=== PATIENT | male | born 1960 | race American Indian/Alaskan Native ===

== ENCOUNTER 2021-03-13 09:16 | Inpatient (IN) | payer SELFPAY ==
[2021-03-13] MEDS ORDERED: ASPIRIN 325 MG TAB PO ONE (09:35)
--- NOTE | 2021-03-13 10:07 | XRay Report ---
CHEST 2 VIEWS INDICATION / CLINICAL INFORMATION: CP. COMPARISON: None available. FINDINGS: SUPPORT DEVICES: None. HEART / MEDIASTINUM: The heart size and pulmonary vasculature are normal. The aorta is normal in girma lyric. LUNGS / PLEURA: No significant pulmonary or pleural abnormality. No pneumothorax. ADDITIONAL FINDINGS: No significant additional findings. IMPRESSION: No acute findings. Signer Name: Jono Acevedo MD Signed: 03/13/2021 10:03 AM Workstation Name: [id number]
[2021-03-13] MEDS ORDERED: HEPARIN 10,000 UNITS/10 ML VIAL IV ONE (10:28)
[2021-03-13] MEDS ORDERED: HEPARIN 10,000 UNITS/10 ML VIAL IV PRN (10:28)
--- NOTE | 2021-03-13 10:33 | Emergency Department Report ---
HPI - General Chief Complaint: Chest Pain Time Seen by Provider: 03/13/21 10:04 - HPI HPI: 60-year-old male with history of hypertension presents complaining of severe mid substernal chest pain since waking up this morning. The patient states that he was diagnosed with COVID-19 on February 28 at the [facility]. He says since then he has been experiencing cough, congestion, and over the last week, intermittent episodes of chest pain lasting approximately an hour at a time. During these episodes of chest pain, including today, he has associated sh ortness of breath with nausea and vomiting. The pain is nonradiating. He describes it as a tightness. He denies any other associated symptoms or complaints including fever, headache, vision change, neck pain, back pain, palpitations, edema, abdominal pain, focal weakness, sensory changes, or any other complaints. ED Past Medical Hx - Past Medical History Hx Hypertension: Yes - Surgical History Past Surgical History?: No - Social History Smoking Status: Current Every Day Smoker Substance Use Type: None ED Review of Systems ROS: Stated complaint: CHEST PAIN Other details as noted in HPI Comment: All other systems reviewed and negative Constitutional: malaise. denies: chills, fever Eyes: denies: eye pain, vision change ENT: denies: throat pain, congestion Respiratory: cough, shortness of breath Cardiovascular: chest pain. denies: palpitations, edema, syncope Gastrointestinal: nausea, vomiting. denies: abdominal pain, diarrhea Genitourinary: denies: dysuria, frequency Musculoskeletal: denies: back pain, arthralgia Skin: denies: rash, lesions Neurological: denies: headache, weakness, numbness Physical Exam - Physical Exam Vital Signs: Vital Signs 03/13/21 09:20 Temperature 98.3 F Pulse Rate 80 Respiratory 20 Rate Blood Pressure 165/117 O2 Sat by Pulse 100 Oximetry Physical Exam: GENERAL: Well developed and well nourished. In mild distress secondary to pain. HEAD: Normocephalic. No obvious signs of trauma. ENT: Moist mucous membranes. EYES: Extraocular movements are intact. Pupils are equal round and reactive to light bilaterally NECK: Supple. Full ROM is intact. Trachea is midline. LUNGS: Tachypneic but without respiratory distress. Equal chest rise bilaterally. Clear to auscultation bilaterally. CARDIOVASCULAR: Regular rate and rhythm. No murmurs or rubs. VASCULAR: Cap refill < 2 seconds. Trace edema bilaterally ABDOMEN: Abdomen is soft and nondistended. There is no significant tenderness, guarding or rebound. SKIN: Skin is warm and dry NEURO: Patient is awake, alert, and oriented. machine setter II-XII grossly intact. No focal deficits. Normal motor and sensory exam throughout. Normal speech. MUSCULOSKELETAL: No obvious deformities. No significant tenderness. Normal ROM throughout. BACK/SPINE: No midline tenderness or step-offs of the C/T/L spine. No costov ertebral angle tenderness. ED Course Vital Signs 03/13/21 09:20 Temperature 98.3 F Pulse Rate 80 Respiratory 20 Rate Blood Pressure 165/117 O2 Sat by Pulse 100 Oximetry ED Medical Decision Making - Lab Data Result diagrams: 03/13/21 10:21 03/13/21 10:21 Lab Results 03/13/21 03/13/21 03/13/21 Range/Units 10:21 10:21 10:21 WBC 8.5 (4.5-11.0) K/mm3 RBC 4.89 (3.65-5.03) M/mm3 Hgb 14.0 (11.8-15.2) gm/dl Hct 43.1 (35.5-45.6) % MCV 88 (84-94) fl MCH 29 (28-32) pg MCHC 33 (32-34) % RDW 15.1 (13.2-15.2) % Plt Count 376 (140-440) K/mm3 Lymph % (Auto) 21.2 (13.4-35.0) % [place] % (Auto) 10.5 H (0.0-7.3) % Eos % (Auto) 0.1 (0.0-4.3) % Baso % (Auto) 0.5 (0.0-1.8) % Lymph # (Auto) 1.8 (1.2-5.4) K/mm3 [place] # (Auto) 0.9 H (0.0-0.8) K/mm3 Eos # (Auto) 0.0 (0.0-0.4) K/mm3 Baso # (Auto) 0.0 (0.0-0.1) K/mm3 Seg Neutrophils % 67.7 (40.0-70.0) % Seg Neutrophils # 5.8 (1.8-7.7) K/mm3 PT 12.0 L (12.2-14.9) Sec. INR 0.80 L (0.87-1.13) APTT 28.5 (24.2-36.6) Sec. D-Dimer (0-234) ng/mlDDU Sodium 139 (137-145) mmol/L Potassium 3.5 L (3.6-5.0) mmol/L Chloride 101.3 (98-107) mmol/L Carbon Dioxide 24 (22-30) mmol/L Anion Gap 17 mmol/L BUN 10 (9-20) mg/dL Creatinine 0.9 (0.8-1.3) mg/dL Estimated GFR > 60 ml/min BUN/Creatinine Ratio 11 % Glucose 96 (75-100) mg/dL Calcium 9.1 (8.4-10.2) mg/dL Ferritin (30.0-300.0) ng/mL Total Bilirubin < 0.20 (0.1-1.2) mg/dL Direct Bilirubin < 0.2 (0-0.2) mg/dL Indirect Bilirubin 0.0 mg/dL AST 26 (5-40) units/L ALT 15 (7-56) units/L Alkaline Phosphatase 67 (35-129) units/L Lactate Dehydrogenase (91-180) units/L Troponin T 0.056 H (0.00-0.029) ng/mL C-Reactive Protein (0.00-1.30) mg/dL NT-Pro-B Natriuret Pep 444.4 (0-900) pg/mL Total Protein 7.0 (6.3-8.2) g/dL Albumin 3.9 (3.9-5) g/dL Albumin/Globulin Ratio 1.3 % Triglycerides 86 (2-149) mg/dL Cholesterol 166 (50-199) mg/dL LDL Cholesterol Direct 105 (50-130) mg/dL HDL Cholesterol 46 (40-59) mg/dL Cholesterol/HDL Ratio 3.60 % Procalcitonin (<0.15) ng/mL 03/13/21 03/13/21 03/13/21 Range/Units 10:21 10:21 11:00 WBC (4.5-11.0) K/mm3 RBC (3.65-5.03) M/mm3 Hgb (11.8-15.2) gm/dl Hct (35.5-45.6) % MCV (84-94) fl MCH (28-32) pg MCHC (32-34) % RDW (13.2-15.2) % Plt Count (140-440) K/mm3 Lymph % (Auto) (13.4-35.0) % [place] % (Auto) (0.0-7.3) % Eos % (Auto) (0.0-4.3) % Baso % (Auto) (0.0-1.8) % Lymph # (Auto) (1.2-5.4) K/mm3 [place] # (Auto) (0.0-0.8) K/mm3 Eos # (Auto) (0.0-0.4) K/mm3 Baso # (Auto) (0.0-0.1) K/mm3 Seg Neutrophils % (40.0-70.0) % Seg Neutrophils # (1.8-7.7) K/mm3 PT (12.2-14.9) Sec. INR (0.87-1.13) APTT (24.2-36.6) Sec. D-Dimer 193.7 (0-234) ng/mlDDU Sodium (137-145) mmol/L Potassium (3.6-5.0) mmol/L Chloride (98-107) mmol/L Carbon Dioxide (22-30) mmol/L Anion Gap mmol/L BUN (9-20) mg/dL Creatinine (0.8-1.3) mg/dL Estimated GFR ml/min BUN/Creatinine Ratio % Glucose (75-100) mg/dL Calcium (8.4-10.2) mg/dL Ferritin (30.0-300.0) ng/mL Total Bilirubin (0.1-1.2) mg/dL Direct Bilirubin (0-0.2) mg/dL Indirect Bilirubin mg/dL AST (5-40) units/L ALT (7-56) units/L Alkaline Phosphatase (35-129) units/L Lactate Dehydrogenase 277 H (91-180) units/L Troponin T (0.00-0.029) ng/mL C-Reactive Protein 0.30 (0.00-1.30) mg/dL NT-Pro-B Natriuret Pep (0-900) pg/mL Total Protein (6.3-8.2) g/dL Albumin (3.9-5) g/dL Albumin/Globulin Ratio % Triglycerides (2-149) mg/dL Cholesterol (50-199) mg/dL LDL Cholesterol Direct (50-130) mg/dL HDL Cholesterol (40-59) mg/dL Cholesterol/HDL Ratio % Procalcitonin < 0.05 (<0.15) ng/mL 03/13/21 03/13/21 Range/Units 11:00 12:54 WBC (4.5-11.0) K/mm3 RBC (3.65-5.03) M/mm3 Hgb (11.8-15.2) gm/dl Hct (35.5-45.6) % MCV (84-94) fl MCH (28-32) pg MCHC (32-34) % RDW (13.2-15.2) % Plt Count (140-440) K/mm3 Lymph % (Auto) (13.4-35.0) % [place] % (Auto) (0.0-7.3) % Eos % (Auto) (0.0-4.3) % Baso % (Auto) (0.0-1.8) % Lymph # (Auto) (1.2-5.4) K/mm3 [place] # (Auto) (0.0-0.8) K/mm3 Eos # (Auto) (0.0-0.4) K/mm3 Baso # (Auto) (0.0-0.1) K/mm3 Seg Neutrophils % (40.0-70.0) % Seg Neutrophils # (1.8-7.7) K/mm3 PT (12.2-14.9) Sec. INR (0.87-1.13) APTT (24.2-36.6) Sec. D-Dimer (0-234) ng/mlDDU Sodium (137-145) mmol/L Potassium (3.6-5.0) mmol/L Chloride (98-107) mmol/L Carbon Dioxide (22-30) mmol/L Anion Gap mmol/L BUN (9-20) mg/dL Creatinine (0.8-1.3) mg/dL Estimated GFR ml/min BUN/Creatinine Ratio % Glucose (75-100) mg/dL Calcium (8.4-10.2) mg/dL Ferritin 67.4 (30.0-300.0) ng/mL Total Bilirubin (0.1-1.2) mg/dL Direct Bilirubin (0-0.2) mg/dL Indirect Bilirubin mg/dL AST (5-40) units/L ALT (7-56) units/L Alkaline Phosphatase (35-129) units/L Lactate Dehydrogenase (91-180) units/L Troponin T 0.192 H* D (0.00-0.029) ng/mL C-Reactive Protein (0.00-1.30) mg/dL NT-Pro-B Natriuret Pep (0-900) pg/mL Total Protein (6.3-8.2) g/dL Albumin (3.9-5) g/dL Albumin/Globulin Ratio % Triglycerides (2-149) mg/dL Cholesterol (50-199) mg/dL LDL Cholesterol Direct (50-130) mg/dL HDL Cholesterol (40-59) mg/dL Cholesterol/HDL Ratio % Procalcitonin (<0.15) ng/mL - EKG Data -: EKG Interpreted by Az - EKG Data 03/13/21 10:37 EKG #1 normal sinus rhythm. Normal axis. Normal intervals. No ectopy. There is approximately 2-[address] depression noted in leads V1-V4 without ST elevat ion or any obvious reciprocal changes. 03/13/21 10:48 EKG #2 (Posterior) normal sinus rhythm. Normal axis. Normal intervals. No ectopy. Previously seen ST depressions in the anterior leads have resolved. There are inverted T waves noted in the anterior leads. There is no significant ST segment abnormalities and no evidence of posterior STEMI - Radiology Data Radiology results: report reviewed - Medical Decision Making 60-year-old male presenting with intermittent chest pain for the past week after being diagnosed with Covid, now with constant chest pain for several hours with associated shortness of breath and nausea. Patient was given full-strength aspirin. He is afebrile and with normal vital signs other than elevated blood pressure. On physical examination he is in mild distress secondary to pain. Lungs are clear to auscultation. There are no other gross abnormalities on physical examination. Patient's EKG shows ST depressions in the anterior leads without other reciprocal changes and no ST elevation. Given concern for posterior RI, I have ordered a posterior EKG and consulted Dr. Bates of interventional cardiology. He doubts STEMI given lack of reciprocal changes but in clinical context with patient who has continued chest pain and diagnosis of COVID-19, he recommends initiation of heparin drip with admission for further management. Posterior EKG was performed and reveals no findings to suggest STEMI. Dr. Bates reviewed this EKG and agreed with this impression Labs reveal no significant leukocytosis or anemia. Kidney function is within normal limits. There is hypokalemia with potassium of 3.5. I have ordered repletion. Troponin is mildly elevated at 0.056. In the clinical context this likely represents NSTEMI. In addition to initiation of the heparin drip, I have ordered Nitropaste and 5 mg of IV Lopressor per recommendations of Dr. Bates. In light of patient with positive troponin and history of Covid diagnosis I will order CT angiogram of the chest to assess for evidence of pulmonary embolism versus other abnormal chest findings. CT angiogram of the chest shows no evidence of pulmonary embolism but there is finding of mild atypical pneumonia. Although this likely represents Covid pneumonia given the clinical history, I have ordered blood cultures and a dose of azithromycin. On repeat assessment at 12:50 PM, the patient is more comfortable appearing. He says his pain is improved but is still present. He remains with stable vital signs. I explained the results and diagnosis to the patient along with the plan of care and he expressed understanding and agreement I spoke with Dr. Rodas, the on-call hospitalist regarding the case and he accepts the patient for admission and will assume care. Critical Care Time: Yes Critical care time in (mins) excluding proc time.: 50 Critical care attestation.: If time is entered above; I have spent that time in minutes in the direct care of this critically ill patient, excluding procedure time. Critical care time was spent in the evaluation/assessment, work-up, and management of NSTEMI requiring initiation of IV heparin drip as well as pneumonia requiring antibiotics and discussion with specialist as well as frequent repeat reevaluation and reassessment. ED Disposition Clinical Impression: NSTEMI (non-ST elevated myocardial infarction), Suspected COVID-19 virus infection, Atypical pneumonia, Hypokalemia Disposition: ADMITTED INPATIENT Is pt being admited?: Yes HEART Score - HEART Score History: Highly suspicious EKG: Non-specific Age: 45-65 Risk factors: 1-2 risk factors
[2021-03-13] MEDS ORDERED: NITROGLYCERIN 0.4 MG TAB SUBL SL ONE (10:51)
[2021-03-13] MEDS ORDERED: ONDANSETRON 4 MG/2 ML INJ IV ONE (10:51)
[2021-03-13] MEDS ORDERED: HEPARIN/ 0.45% NACL DRIP 25,000 UNIT/500 ML BAG IV SCH (11:00)
[2021-03-13 11:04] LABS: Basophils % (Auto) 0.5 % (0.0-1.8); Eosinophils % (Auto) 0.1 % (0.0-4.3); Hematocrit 43.1 % (35.5-45.6); Lymphocytes # (Auto) 1.8 K/mm3 (1.2-5.4); Lymphocytes % (Auto) 21.2 % (13.4-35.0); Mean Corpuscular HGB Conc 33 % (32-34); Mean Corpuscular Volume 88 fl (84-94); Monocytes # (Auto) 0.9 K/mm3 (0.0-0.8); Monocytes % (Auto) 10.5 % (0.0-7.3); Platelet Count 376 K/mm3 (140-440); Red Blood Count 4.89 M/mm3 (3.65-5.03); Red Cell Distribution Width 15.1 % (13.2-15.2)
[2021-03-13 11:25] LABS: Alanine Aminotransferase 15 units/L (7-56); Albumin 3.9 g/dL (3.9-5); BUN/Creatinine Ratio 11; Blood Urea Nitrogen 10 mg/dL (9-20); Calcium 9.1 mg/dL (8.4-10.2); Hemolysis Index 2
[2021-03-13] MEDS ORDERED: POTASSIUM CHLORIDE ER 20 MEQ TAB PO ONE (11:29)
[2021-03-13 11:37] LABS: HDL Cholesterol 46 mg/dL (40-59); LDL Cholesterol,Direct 105 mg/dL (50-130)
[2021-03-13] MEDS ORDERED: NITROGLYCERIN 2% OINT 1 GM TP ONE (11:41)
[2021-03-13] MEDS ORDERED: METOPROLOL TARTRATE 5 MG/5 ML INJ IV ONE (11:42)
[2021-03-13 11:51] LABS: Bilirubin,Direct < 0.2 mg/dL (0-0.2)
[2021-03-13 12:05] LABS: INR 0.8 (0.87-1.13)
[2021-03-13 12:06] LABS: Partial Thromboplastin Time 28.5 Sec. (24.2-36.6)
[2021-03-13 12:14] LABS: C-Reactive Protein 0.3 mg/dL (0.00-1.30)
--- NOTE | 2021-03-13 12:34 | Consultation ---
<TIMOTHY MATA - Last Filed: 03/13/21 18:20> History of Present Illness Consult date: 03/13/21 Requesting physician: JOSE FUENTES Consult reason: chest pain History of present illness: Pt is a 60-year-old AA male with a hx of HTN, tobacco abuse (1 pack per week), and recently diagnosed COVID-19 infection (dx 02/28/2021), who presented with complaints of chest pain. Pt reports generalized fatigue, chills, SOB, and a cough that started prior to his COVID diagnosis. He is unvaccinated. Pt developed worsening SOB and chest pain a few days ago. Pt describes pain as a burning sensation in the center of his chest. He initially thought the pain to be indigestion because it became worse after eating. Sometimes associated with nausea. No diaphoresis or palpitations. He tried drinking some warm tea but notes no relief. Pain has been mostly constant for the past 3 days, with intermittent short periods of sporadic relief lasting only a few min. Pain is worsened by deep breaths. Pt states pain severity was 10/10 prior to arrival. Pain improved to 7/10 s/p NTG. Trop elevated - 0.056 -> 0.749. Initial 12-lead ECG revealed mild anterior ST depression without reciprocal changes. These ST segment changes resolved on repeat ECG, though anterior T wave inversions now present. Pt still has complaints of chest pain actively upon assessment but states he feels much better than he did when he arrived. Requesting food. He is not requiring supplemental O2. Of note, chest CTA revealed no evidence of PE. [facility], [facility]ch[facility]. He is previously unknown to our practice. No prior cardiac workup on file. Past History Past Medical History: hypertension. denies: acute MN, atrial fib, CAD, COPD, diabetes, DVT, heart failure, hyperlipidemia, liver disease, pulmonary embolism, renal failure, stroke Past Surgical History: denies: valve replacement, CABG, PTCA Social history: lives with family, smoking. denies: alcohol abuse Family history: hypertension Medications and Allergies Allergies Allergy/AdvReac Type Severity Reaction Status Date / Time No Known Allergies Allergy Verified 03/13/21 11:36 Active Meds: Active Medications Heparin Sodium (Porcine) (Heparin 10,000 Units/10 Ml Vial) 2,700 unit 40 unit/kg (2700 unit) IV Q6H PRN PRN Reason: Anti-Xa Assay < 0.1 units/ml Heparin Sodium/Sodium Chloride (Heparin/ 0.45% Nacl-25,000 Unit/500 Ml) 25,000 unit in 500 mls @ 20 mls/hr IV TITRATE ANGELINA; Protocol Review of Systems Constitutional: chills, fatigue, no fever, no sweats Ears, nose, mouth and throat: nasal congestion, no sore throat Cardiovascular: chest pain, shortness of breath, no palpitations, no edema, no syncope, no lightheadedness, no claudication Respiratory: cough, shortness of breath Gastrointestinal: nausea, no abdominal pain, no vomiting Genitourinary Male: no dysuria Musculoskeletal: no myalgias Integumentary: no rash, no wounds Neurological: no numbness, no tingling, no seizures, no syncope, no vertigo, no headaches Endocrine: no polydipsia, no polyuria Hematologic/Lymphatic: no easy bruising, no easy bleeding Allergic/Immunologic: no anaphylaxis Physical Examination Last Vital Signs Temp 98.3 F 03/13/21 09:20 Pulse 78 03/13/21 12:23 Resp 16 03/13/21 12:20 BP 158/105 03/13/21 12:23 Pulse Ox 99 03/13/21 12:20 General appearance: no acute distress HEENT: Positive: EOMI, Normocephaly, Mucus Membranes Moist Neck: Positive: neck supple, trachea midline. Negative: JVD/HJR Cardiac: Positive: Reg Rate and Rhythm, S1/S2 Lungs: Positive: Decreased Breath Sounds Neuro: Positive: Grossly Intact Abdomen: Positive: Soft. Negative: Tender Skin: Negative: Rash Musculoskeletal: No Fluid Collection, No Pain Extremities: Present: upper extr. pulses, lower extr. pulses. Absent: edema Results 03/13/21 10:21 03/13/21 10:21 Cardiac Enzymes 03/13/21 03/13/21 Range/Units 10:21 10:21 AST 26 (5-40) units/L Lactate Dehydrogenase 277 H (91-180) units/L Coagulation 03/13/21 Range/Units 10:21 PT 12.0 L (12.2-14.9) Sec. INR 0.80 L (0.87-1.13) APTT 28.5 (24.2-36.6) Sec. Lipids 03/13/21 Range/Units 10:21 Triglycerides 86 (2-149) mg/dL Cholesterol 166 (50-199) mg/dL HDL Cholesterol 46 (40-59) mg/dL Cholesterol/HDL Ratio 3.60 % CBC 03/13/21 Range/Units 10:21 WBC 8.5 (4.5-11.0) K/mm3 RBC 4.89 (3.65-5.03) M/mm3 Hgb 14.0 (11.8-15.2) gm/dl Hct 43.1 (35.5-45.6) % Plt Count 376 (140-440) K/mm3 Lymph # (Auto) 1.8 (1.2-5.4) K/mm3 [place] # (Auto) 0.9 H (0.0-0.8) K/mm3 Eos # (Auto) 0.0 (0.0-0.4) K/mm3 Baso # (Auto) 0.0 (0.0-0.1) K/mm3 Comprehensive Metabolic Panel 03/13/21 Range/Units 10:21 Sodium 139 (137-145) mmol/L Potassium 3.5 L (3.6-5.0) mmol/L Chloride 101.3 (98-107) mmol/L Carbon Dioxide 24 (22-30) mmol/L BUN 10 (9-20) mg/dL Creatinine 0.9 (0.8-1.3) mg/dL Glucose 96 (75-100) mg/dL Calcium 9.1 (8.4-10.2) mg/dL Direct Bilirubin < 0.2 (0-0.2) mg/dL Indirect Bilirubin 0.0 mg/dL AST 26 (5-40) units/L ALT 15 (7-56) units/L Alkaline Phosphatase 67 (35-129) units/L Total Protein 7.0 (6.3-8.2) g/dL Albumin 3.9 (3.9-5) g/dL - Imaging and Cardiology Echo: pending Cardiac cath: pending EKG: report reviewed, image reviewed EKG interpretations - Telemetry EKG Rhythm: Sinus Rhythm - EKG Sinus rhythms and dysrhythmias: sinus rhythm Additional Comments: 2mm depression in leads V1-V4, with no obvious reciprocal changes Assessment and Plan Chest Pain NSTEMI H/o COVID-19 Infection (dx 02/28/2021) LLL PNA Tobacco Abuse (1 pack per week) HTN Varicose Veins/?Venous Insufficiency Plan: Start heparin gtt. Add Aggrastat gtt x 12 hours. Initiate ASA, statin, and beta tonya. Plan for LHC in AM. NPO after midnight. Will hold heparin gtt in AM prior to planned procedure. Continue Nitropaste. Echo pending. Pt seen in conjunction with Dr. Bates, who agrees with the assessment and plan of care. - Patient Problems (1) ACS (acute coronary syndrome) Current Visit: Yes Status: Acute <EARNEST BATES R - Last Filed: 03/14/21 12:59> Medications and Allergies Active Meds: Active Medications Acetaminophen (Acetaminophen 325 Mg Tab) 650 mg PO Q4H PRN PRN Reason: Pain MILD(1-3)/Fever >100.5/LORENZANA Aspirin (Aspirin 81 Mg Tab Chew) 81 mg PO DAILY ANGELINA Atorvastatin Calcium (Atorvastatin 40 Mg Tab) 40 mg PO QHS [facility] Last Admin: 03/13/21 22:42 Dose: 40 mg Azithromycin (Azithromycin 250 Mg Tab) 500 mg PO QDAY [facility]; Protocol Dexamethasone (Dexamethasone 4 Mg/Ml Vial) 8 mg IV Q24HR [facility] Last Admin: 03/14/21 00:01 Dose: Not Given Famotidine (Famotidine 20 Mg/2 Ml Inj) 20 mg IV BID [facility] Last Admin: 03/14/21 00:01 Dose: Not Given Hydromorphone HCl (Hydromorphone 1 Mg/1 Ml Inj) 0.5 mg IV Q3H PRN PRN Reason: Pain , Severe (7-10) Sodium Chloride (Nacl 0.9% 1000 Ml) 1,000 mls @ 75 mls/hr IV DIRECT [facility] Stop: 03/14/21 18:00 Azithromycin (Zithromax/Ns) 500 mg in 250 mls @ 250 mls/hr IV Q24HR [facility] Stop: 03/14/21 23:59 Ceftriaxone Sodium (Rocephin/Ns 2 Gm/100 Ml) 2 gm in 100 mls @ 200 mls/hr IV 2300 [facility]; Protocol Metoclopramide HCl (Metoclopramide 10 Mg/2 Ml Inj) 10 mg IV Q6H PRN PRN Reason: Nausea And Vomiting Metoprolol Tartrate (Metoprolol Tartrate 25 Mg Tab) 25 mg PO BID [facility] Last Admin: 03/13/21 22:17 Dose: 25 mg Morphine Sulfate (Morphine 2 Mg/1 Ml Inj) 2 mg IV Q4H PRN PRN Reason: Pain, Moderate (4-6) Ondansetron HCl (Ondansetron 4 Mg/2 Ml Inj) 4 mg IV Q3H PRN PRN Reason: Nausea And Vomiting Oxycodone/Acetaminophen (Oxycodone /Acetaminophen 5-325mg Tab) 1 tab PO Q6H PRN PRN Reason: Pain, Moderate (4-6) Sodium Chloride (Sodium Chloride 0.9% 10 Ml Flush Syringe) 10 ml IV BID [facility] Sodium Chloride (Sodium Chloride 0.9% 10 Ml Flush Syringe) 10 ml IV PRN PRN PRN Reason: LINE FLUSH Physical Examination Vital Signs Temp Pulse Resp BP Pulse Ox 98.3 F 80 20 165/117 100 03/13/21 09:20 03/13/21 09:20 03/13/21 09:20 03/13/21 09:20 03/13/21 09:20 Results 03/14/21 04:15 03/14/21 04:15 Cardiac Enzymes 03/14/21 Range/Units 09:38 Lactate Dehydrogenase 1376 H (91-180) units/L Coagulation 03/14/21 Range/Units 04:15 PT 13.1 (12.2-14.9) Sec. INR 0.89 (0.87-1.13) CBC 03/14/21 Range/Units 04:15 WBC 11.3 H (4.5-11.0) K/mm3 RBC 4.72 (3.65-5.03) M/mm3 Hgb 13.4 (11.8-15.2) gm/dl Hct 42.1 (35.5-45.6) % Plt Count 362 (140-440) K/mm3 Lymph # (Auto) 2.1 (1.2-5.4) K/mm3 [place] # (Auto) 1.4 H (0.0-0.8) K/mm3 Eos # (Auto) 0.0 (0.0-0.4) K/mm3 Baso # (Auto) 0.0 (0.0-0.1) K/mm3 Comprehensive Metabolic Panel 03/14/21 Range/Units 04:15 Sodium 139 (137-145) mmol/L Potassium 3.9 (3.6-5.0) mmol/L Chloride 103.7 (98-107) mmol/L Carbon Dioxide 23 (22-30) mmol/L BUN 10 (9-20) mg/dL Creatinine 0.8 (0.8-1.3) mg/dL Glucose 95 (75-100) mg/dL Calcium 8.9 (8.4-10.2) mg/dL Assessment and Plan acs-nstemi acute systolic heart failure smoker htn chol rec: agree with lhc, iv heparin, iv aggrstat and lopressor and nitro.
--- NOTE | 2021-03-13 12:39 | Cat Scan Report ---
CTA CHEST WITH CONTRAST INDICATION / CLINICAL INFORMATION: Shortness of breath. TECHNIQUE: Axial CT images were obtained through the chest after injection of opaque 350, 100 cc IV c ontrast. 3 plane MIP and/or 3D reconstructions were produced. All CT scans at this location are perfo rmed using CT dose reduction for ALARA by means of automated exposure control. COMPARISON: None available. FINDINGS: PULMONARY ARTERIES: No pulmonary emboli. THORACIC AORTA: No significant abnormality. HEART: No significant abnormality. CORONARY ARTERY CALCIFICATION: None. MEDIASTINUM / COLIN: No significant abnormality. PLEURA: No pleural effusion. No pneumothorax. LUNGS: Mild patchy opacity along the lateral aspect of the left lower lobe. No dense infiltrate. ADDITIONAL FINDINGS: None. UPPER ABDOMEN: No acute findings. SKELETAL STRUCTURES: No significant osseous abnormality. IMPRESSION: 1. No CT evidence for pulmonary embolism. 2. Mild atypical pneumonia. Signer Name: Regis Fierro MD Signed: 03/13/2021 12:34 PM Workstation Name: [id number]
[2021-03-13] MEDS ORDERED: AZITHROMYCIN/NS 500 MG/250 ML 500 MG/250 ML BAG IV ONE (12:50)
[2021-03-13] MEDS ORDERED: SODIUM CHLORIDE 0.9% 500 ML 500 ML IV SCH (13:00)
[2021-03-13] MEDS ORDERED: METOPROLOL TARTRATE 25 MG TAB PO ONE (18:00)
[2021-03-13] MEDS ORDERED: TIROFIBAN/NS 12,500 MCG/250 ML BAG IV SCH (19:00)
[2021-03-13] MEDS ORDERED: ACETAMINOPHEN 325 MG TAB PO ONE (21:34)
[2021-03-13] MEDS ORDERED: METOPROLOL TARTRATE 25 MG TAB PO SCH (22:00)
--- NOTE | 2021-03-13 23:11 | History and Physical Report ---
History of Present Illness Date of examination: 03/13/21 Date of admission: 03/13/21 13:01 Chief complaint: Chest pain since a.m. History of present illness: 60-year-old male with history of hypertension presents complaining of severe mid substernal chest pain since waking up this morning. The patient states that he was diagnosed with COVID-19 on February 28 at the [facility]. He says since then he has been experiencing cough, congestion, and over the last week, intermittent episodes of chest pain lasting approximately an hour at a time. During these episodes of chest pain, including today, he has associated shortness of breath with nausea and vomiting. The pain is nonradiating. He describes it as a tightness. He denies any other associated symptoms or complaints including fever, headache, vision change, neck pain, back pain, palpitations, edema, abdominal pain, focal weakness, sensory changes, or any other complaints. - Past Medical History --Hypertension: Yes - Surgical History Past Surgical History?: No - Social History Smoking Status: Current Every Day Smoker Substance Use Type: None Family history --HTN Review of Systems ROS: Stated complaint: CHEST PAIN Other details as noted in HPI Comment: All other systems reviewed and negative Constitutional: malaise. denies: chills, fever Eyes: denies: eye pain, vision change ENT: denies: throat pain, congestion Respiratory: cough, shortness of breath Cardiovascular: chest pain. denies: palpitations, edema, syncope Gastrointestinal: nausea, vomiting. denies: abdominal pain, diarrhea Genitourinary: denies: dysuria, frequency Musculoskeletal: denies: back pain, arthralgia Skin: denies: rash, lesions Neurological: denies: headache, weakness, numbness Past History Past Medical History: hypertension. denies: acute MT, atrial fib, CAD, COPD, diabetes, DVT, heart failure, hyperlipidemia, liver disease, pulmonary embolism, renal failure, stroke Past Surgical History: denies: valve replacement, CABG, PTCA Social history: lives with family, smoking. denies: alcohol abuse Family history: hypertension Medications and Allergies Allergies Allergy/AdvReac Type Severity Reaction Status Date / Time No Known Allergies Allergy Verified 03/13/21 11:36 Active Meds: Active Medications Aspirin (Aspirin 81 Mg Tab Chew) 81 mg PO DAILY [facility] Atorvastatin Calcium (Atorvastatin 40 Mg Tab) 40 mg PO QHS [facility] Last Admin: 03/13/21 22:42 Dose: 40 mg Heparin Sodium (Porcine) (Heparin 10,000 Units/10 Ml Vial) 2,700 unit 40 unit/kg (2700 unit) IV Q6H PRN PRN Reason: Anti-Xa Assay < 0.1 units/ml Last Admin: 03/13/21 21:55 Dose: 2,700 unit Heparin Sodium/Sodium Chloride (Heparin/ 0.45% Nacl-25,000 Unit/500 Ml) 25,000 unit in 500 mls @ 20 mls/hr IV TITRATE ANGELINA; Protocol Stop: 03/14/21 04:00 Last Titration: 03/13/21 22:00 Dose: 1,205 units/hr, 24.1 mls/hr Tirofiban/Sodium Chloride (Aggrastat Drip (12.5 Mg/250 Ml)) 12,500 mcg in 250 mls @ 12 mls/hr IV DIRECT ANGELINA; Protocol Stop: 03/14/21 06:59 Metoprolol Tartrate (Metoprolol Tartrate 25 Mg Tab) 25 mg PO BID ANGELINA Last Admin: 03/13/21 22:17 Dose: 25 mg Exam - Constitutional Vitals: Temp Pulse Resp BP Pulse Ox 98.3 F 78 16 158/105 99 03/13/21 09:20 03/13/21 12:23 03/13/21 12:20 03/13/21 12:23 03/13/21 12:20 General appearance: Present: no acute distress, well-nourished - EENT Eyes: Present: PERRL ENT: hearing intact, clear oral mucosa - Neck Neck: Present: supple, normal ROM - Respiratory Respiratory effort: normal Respiratory: bilateral: CTA - Cardiovascular Heart rate: 78 Rhythm: regular Heart Sounds: Present: S1 & S2. Absent: rub, click - Extremities Extremities: pulses symmetrical, No edema Peripheral Pulses: within normal limits - Abdominal General gastrointestinal: Present: soft, non-tender, non-distended, normal bowel sounds Male genitourinary: Present: normal - Integumentary Integumentary: Present: clear, warm, dry - Musculoskeletal Musculoskeletal: gait normal, strength equal bilaterally - Psychiatric Psychiatric: appropriate mood/affect, intact judgment & insight, cooperative - Neurologic Neurologic: CNII-XII intact, moves all extremities, gait normal - Allied Health Allied health notes reviewed: nursing, social work, case management HEART Score - HEART Score EKG: Non-specific Age: 45-65 Risk factors: 1-2 risk factors Troponin: Troponin T 0.749 ng/mL (0.00-0.029) H* D 03/13/21 15:36 - Critical Actions Critical Actions: >7 pts:50-65% risk of adverse cardiac event. Early invasive measures Results - Labs CBC & Chem 7: 03/14/21 04:15 03/14/21 04:15 Labs: Laboratory Last Values WBC 8.5 K/mm3 (4.5-11.0) 03/13/21 10:21 RBC 4.89 M/mm3 (3.65-5.03) 03/13/21 10:21 Hgb 14.0 gm/dl (11.8-15.2) 03/13/21 10:21 Hct 43.1 % (35.5-45.6) 03/13/21 10:21 MCV 88 fl (84-94) 03/13/21 10:21 MCH 29 pg (28-32) 03/13/21 10:21 MCHC 33 % (32-34) 03/13/21 10:21 RDW 15.1 % (13.2-15.2) 03/13/21 10:21 Plt Count 376 K/mm3 (140-440) 03/13/21 10:21 Lymph % (Auto) 21.2 % (13.4-35.0) 03/13/21 10:21 [place] % (Auto) 10.5 % (0.0-7.3) H 03/13/21 10:21 Eos % (Auto) 0.1 % (0.0-4.3) 03/13/21 10:21 Baso % (Auto) 0.5 % (0.0-1.8) 03/13/21 10:21 Lymph # (Auto) 1.8 K/mm3 (1.2-5.4) 03/13/21 10:21 [place] # (Auto) 0.9 K/mm3 (0.0-0.8) H 03/13/21 10:21 Eos # (Auto) 0.0 K/mm3 (0.0-0.4) 03/13/21 10:21 Baso # (Auto) 0.0 K/mm3 (0.0-0.1) 03/13/21 10:21 Seg Neutrophils % 67.7 % (40.0-70.0) 03/13/21 10:21 Seg Neutrophils # 5.8 K/mm3 (1.8-7.7) 03/13/21 10:21 PT 12.0 Sec. (12.2-14.9) L 03/13/21 10:21 INR 0.80 (0.87-1.13) L 03/13/21 10:21 APTT 28.5 Sec. (24.2-36.6) 03/13/21 10:21 D-Dimer 193.7 ng/mlDDU (0-234) 03/13/21 10:21 Heparin Anti-Xa Level < 0.10 U.I./ml (0.3-0.7) L 03/13/21 19:38 Sodium 139 mmol/L (137-145) 03/13/21 10:21 Potassium 3.5 mmol/L (3.6-5.0) L 03/13/21 10:21 Chloride 101.3 mmol/L (98-107) 03/13/21 10:21 Carbon Dioxide 24 mmol/L (22-30) 03/13/21 10:21 Anion Gap 17 mmol/L 03/13/21 10:21 BUN 10 mg/dL (9-20) 03/13/21 10:21 Creatinine 0.9 mg/dL (0.8-1.3) 03/13/21 10:21 Estimated GFR > 60 ml/min 03/13/21 10:21 BUN/Creatinine Ratio 11 % 03/13/21 10:21 Glucose 96 mg/dL (75-100) 03/13/21 10:21 Calcium 9.1 mg/dL (8.4-10.2) 03/13/21 10:21 Ferritin 67.4 ng/mL (30.0-300.0) 03/13/21 11:00 Total Bilirubin < 0.20 mg/dL (0.1-1.2) 03/13/21 10:21 Direct Bilirubin < 0.2 mg/dL (0-0.2) 03/13/21 10:21 Indirect Bilirubin 0.0 mg/dL 03/13/21 10:21 AST 26 units/L (5-40) 03/13/21 10:21 ALT 15 units/L (7-56) 03/13/21 10:21 Alkaline Phosphatase 67 units/L (35-129) 03/13/21 10:21 Lactate Dehydrogenase 277 units/L (91-180) H 03/13/21 10:21 Troponin T 0.749 ng/mL (0.00-0.029) H* D 03/13/21 15:36 C-Reactive Protein 0.30 mg/dL (0.00-1.30) 03/13/21 10:21 NT-Pro-B Natriuret Pep 444.4 pg/mL (0-900) 03/13/21 10:21 Total Protein 7.0 g/dL (6.3-8.2) 03/13/21 10:21 Albumin 3.9 g/dL (3.9-5) 03/13/21 10:21 Albumin/Globulin Ratio 1.3 % 03/13/21 10:21 Triglycerides 86 mg/dL (2-149) 03/13/21 10:21 Cholesterol 166 mg/dL (50-199) 03/13/21 10:21 LDL Cholesterol Direct 105 mg/dL (50-130) 03/13/21 10:21 HDL Cholesterol 46 mg/dL (40-59) 03/13/21 10:21 Cholesterol/HDL Ratio 3.60 % 03/13/21 10:21 Procalcitonin < 0.05 ng/mL (<0.15) 03/13/21 11:00 Microbiology: Microbiology 03/13/21 12:59 Peripheral/Venous Blood Culture - Preliminary Culture in Progress 03/13/21 12:59 Peripheral/Venous Blood Culture - Preliminary Culture in Progress - Imaging and Cardiology EKG: report reviewed (Sinus rhythm no acute ST-T wave changes) Chest x-ray: report reviewed CT scan - chest: report reviewed Venous US: pending Imaging and Cardiology: Chest x-ray No acute findings Chest CTA No CT evidence for pulmonary embolism Mild atypical pneumonia Mild patchy opacity along the lateral aspect of the left lower lobe. Dense infiltrate. 03/13/21 10:37 EKG #1 normal sinus rhythm. Normal axis. Normal intervals. No ectopy. There is approximately 2-[address] depression noted in leads V1-V4 without ST elevation or any obvious reciprocal changes. 03/13/21 10:48 EKG #2 (Posterior) normal sinus rhythm. Normal axis. Normal intervals. No ectopy. Previously seen ST depressions in the anterior leads have resolved. There are inverted T waves noted in the anterior leads. There is no significant ST segment abnormalities and no evidence of posterior STEMI Assessment and Plan Advance Directives: Yes (Full code) VTE prophylaxis?: Chemical Plan of care discussed with patient/family: Yes - Patient Problems (1) NSTEMI (non-ST elevated myocardial infarction) Current Visit: Yes Status: Acute Plan to address problem: Patient has acute EKG changes and elevated troponin consistent with NSTEMI Patient started on IV heparin drip Possible cardiac cath in a.m. Cardiology consulted Troponins on the uptrend (2) Person under investigation for COVID-19 Current Visit: Yes Status: Acute Plan to address problem: Coronavirus PCR in a.m. Patient was diagnosed with COVID on February 28 IV Decadron for now ID consult if necessary (3) Pneumonia Current Visit: Yes Status: Acute Qualifiers: Laterality: left Lung location: lower lobe of lung Plan to address problem: Patchy infiltrate on the left lower lobe IV antibiotics initiated Check procalcitonin and discontinue IV antibiotics if necessary (4) SIRS (systemic inflammatory response syndrome) Current Visit: Yes Status: Acute Plan to address problem: LDH is elevated, CRP is normal, D-dimer is normal (5) Hypertension Current Visit: Yes Status: Chronic Qualifiers: Hypertension type: primary hypertension Qualified Code(s): I10 - Essential (primary) hypertension Plan to address problem: Continue antihypertensives (6) Hypokalemia Current Visit: Yes Status: Acute Plan to address problem: Supplemented (7) Advance care planning Current Visit: Yes Status: Acute Plan to address problem: Disease education conducted, care plan discussed, diagnosis discussed, prognosis discussed. Patient is full code. Patient acknowledges understanding and agreement with care plan. +30 minutes. (8) DVT prophylaxis Current Visit: Yes Status: Acute Plan to address problem: On IV heparin and GI prophylaxis
[2021-03-13] MEDS ORDERED: ACETAMINOPHEN 325 MG TAB PO PRN (23:15)
[2021-03-13] MEDS ORDERED: SODIUM CHLORIDE 0.9% 1000 ML 1,000 ML IV SCH (23:15)
[2021-03-13] MEDS ORDERED: ONDANSETRON 4 MG/2 ML INJ IV PRN (23:15)
[2021-03-13] MEDS ORDERED: oxyCODONE /ACETAMINOPHEN 5-325MG TAB PO PRN (23:23)
[2021-03-13] MEDS ORDERED: MORPHINE 2 MG/1 ML INJ IV PRN (23:23)
[2021-03-13] MEDS ORDERED: HYDROmorphone 1 MG/1 ML INJ IV PRN (23:23)
[2021-03-13] MEDS ORDERED: METOCLOPRAMIDE 10 MG/2 ML INJ IV PRN (23:23)
[2021-03-13] MEDS ORDERED: FAMOTIDINE 20 MG/2 ML INJ IV SCH (23:45)
[2021-03-13] MEDS ORDERED: dexAMETHasone 4 MG/ML VIAL IV SCH (23:45)
[2021-03-13] MEDS ORDERED: cefTRIAXone/NS 2 GM/100 ML 2 GM/100 ML BAG IV SCH (23:55)
[2021-03-14 05:25] LABS: Basophils % (Auto) 0.4 % (0.0-1.8); Eosinophils % (Auto) 0.1 % (0.0-4.3); Hematocrit 42.1 % (35.5-45.6); Hemoglobin 13.4 gm/dl (11.8-15.2); Lymphocytes # (Auto) 2.1 K/mm3 (1.2-5.4); Lymphocytes % (Auto) 18.5 % (13.4-35.0); Mean Corpuscular HGB Conc 32 % (32-34); Mean Corpuscular Volume 89 fl (84-94); Monocytes # (Auto) 1.4 K/mm3 (0.0-0.8); Monocytes % (Auto) 12.6 % (0.0-7.3); Platelet Count 362 K/mm3 (140-440); Red Blood Count 4.72 M/mm3 (3.65-5.03); Red Cell Distribution Width 15.3 % (13.2-15.2)
[2021-03-14 05:34] LABS: BUN/Creatinine Ratio 13; Blood Urea Nitrogen 10 mg/dL (9-20); Calcium 8.9 mg/dL (8.4-10.2); Hemolysis Index 7
[2021-03-14 06:24] LABS: INR 0.89 (0.87-1.13)
--- NOTE | 2021-03-14 09:25 | Progress Note ---
Assessment and Plan Assessment and plan: NSTEMI/ACS COVID-19 pneumonia Hypertension 03/14/2021. Patient with significantly elevated troponin that has trended upward. Troponin0.056--->1.749--->14.26. I discussed the significantly elevated troponin with cardiology who plans to take the patient to the [facility]. Patient currently with heparin and Aggrastat drips. Continue aspirin, statin and beta-tonya. Echocardiogram pending. Await COVID PCR testing to confirm outpatient positive test. Check inflammatory markers. Continue dexamethasone. Continue IV antibiotics until procalcitonin resulted. Consider ID consultation based on COVID PCR test History Interval history: No new issues overnight. Hospitalist Physical - Constitutional Vitals: Temp Pulse Resp BP Pulse Ox 98.3 F 74 22 124/87 99 03/13/21 09:20 03/14/21 07:01 03/14/21 07:01 03/14/21 07:01 03/14/21 07:01 General appearance: Present: no acute distress, well-nourished - EENT Eyes: Present: PERRL, EOM intact ENT: hearing intact, clear oral mucosa, dentition normal - Neck Neck: Present: supple, normal ROM - Respiratory Respiratory effort: normal Respiratory: bilateral: CTA - Cardiovascular Rhythm: regular Heart Sounds: Present: S1 & S2. Absent: gallop, rub - Extremities Extremities: no ischemia, No edema, Full ROM - Abdominal General gastrointestinal: soft, non-tender, non-distended, normal bowel sounds - Integumentary Integumentary: Present: clear, warm, dry - Neurologic Neurologic: CNII-XII intact, moves all extremities HEART Score - HEART Score EKG: Non-specific Age: 45-65 Risk factors: 1-2 risk factors Troponin: Troponin T 14.260 ng/mL (0.00-0.029) H* D 03/14/21 04:15 - Critical Actions Critical Actions: >7 pts:50-65% risk of adverse cardiac event. Early invasive measures Results - Labs CBC & Chem 7: 03/14/21 04:15 03/14/21 04:15 Labs: Laboratory Last Values WBC 11.3 K/mm3 (4.5-11.0) H 03/14/21 04:15 RBC 4.72 M/mm3 (3.65-5.03) 03/14/21 04:15 Hgb 13.4 gm/dl (11.8-15.2) 03/14/21 04:15 Hct 42.1 % (35.5-45.6) 03/14/21 04:15 MCV 89 fl (84-94) 03/14/21 04:15 MCH 29 pg (28-32) 03/14/21 04:15 MCHC 32 % (32-34) 03/14/21 04:15 RDW 15.3 % (13.2-15.2) H 03/14/21 04:15 Plt Count 362 K/mm3 (140-440) 03/14/21 04:15 Lymph % (Auto) 18.5 % (13.4-35.0) 03/14/21 04:15 [place] % (Auto) 12.6 % (0.0-7.3) H 03/14/21 04:15 Eos % (Auto) 0.1 % (0.0-4.3) 03/14/21 04:15 Baso % (Auto) 0.4 % (0.0-1.8) 03/14/21 04:15 Lymph # (Auto) 2.1 K/mm3 (1.2-5.4) 03/14/21 04:15 [place] # (Auto) 1.4 K/mm3 (0.0-0.8) H 03/14/21 04:15 Eos # (Auto) 0.0 K/mm3 (0.0-0.4) 03/14/21 04:15 Baso # (Auto) 0.0 K/mm3 (0.0-0.1) 03/14/21 04:15 Seg Neutrophils % 68.4 % (40.0-70.0) 03/14/21 04:15 Seg Neutrophils # 7.7 K/mm3 (1.8-7.7) 03/14/21 04:15 PT 13.1 Sec. (12.2-14.9) 03/14/21 04:15 INR 0.89 (0.87-1.13) 03/14/21 04:15 APTT 28.5 Sec. (24.2-36.6) 03/13/21 10:21 D-Dimer 193.7 ng/mlDDU (0-234) 03/13/21 10:21 Heparin Anti-Xa Level < 0.10 U.I./ml (0.3-0.7) L 03/14/21 04:15 Sodium 139 mmol/L (137-145) 03/14/21 04:15 Potassium 3.9 mmol/L (3.6-5.0) 03/14/21 04:15 Chloride 103.7 mmol/L (98-107) 03/14/21 04:15 Carbon Dioxide 23 mmol/L (22-30) 03/14/21 04:15 Anion Gap 16 mmol/L 03/14/21 04:15 BUN 10 mg/dL (9-20) 03/14/21 04:15 Creatinine 0.8 mg/dL (0.8-1.3) 03/14/21 04:15 Estimated GFR > 60 ml/min 03/14/21 04:15 BUN/Creatinine Ratio 13 % 03/14/21 04:15 Glucose 95 mg/dL (75-100) 03/14/21 04:15 Calcium 8.9 mg/dL (8.4-10.2) 03/14/21 04:15 Ferritin 67.4 ng/mL (30.0-300.0) 03/13/21 11:00 Total Bilirubin < 0.20 mg/dL (0.1-1.2) 03/13/21 10:21 Direct Bilirubin < 0.2 mg/dL (0-0.2) 03/13/21 10:21 Indirect Bilirubin 0.0 mg/dL 03/13/21 10:21 AST 26 units/L (5-40) 03/13/21 10:21 ALT 15 units/L (7-56) 03/13/21 10:21 Alkaline Phosphatase 67 units/L (35-129) 03/13/21 10:21 Lactate Dehydrogenase 277 units/L (91-180) H 03/13/21 10:21 Troponin T 14.260 ng/mL (0.00-0.029) H* D 03/14/21 04:15 C-Reactive Protein 0.30 mg/dL (0.00-1.30) 03/13/21 10:21 NT-Pro-B Natriuret Pep 444.4 pg/mL (0-900) 03/13/21 10:21 Total Protein 7.0 g/dL (6.3-8.2) 03/13/21 10:21 Albumin 3.9 g/dL (3.9-5) 03/13/21 10:21 Albumin/Globulin Ratio 1.3 % 03/13/21 10:21 Triglycerides 86 mg/dL (2-149) 03/13/21 10:21 Cholesterol 166 mg/dL (50-199) 03/13/21 10:21 LDL Cholesterol Direct 105 mg/dL (50-130) 03/13/21 10:21 HDL Cholesterol 46 mg/dL (40-59) 03/13/21 10:21 Cholesterol/HDL Ratio 3.60 % 03/13/21 10:21 Procalcitonin < 0.05 ng/mL (<0.15) 03/13/21 11:00 Microbiology: Microbiology 03/13/21 12:59 Peripheral/Venous Blood Culture - Preliminary Culture in Progress 03/13/21 12:59 Peripheral/Venous Blood Culture - Preliminary Culture in Progress Active Medications - Current Medications Current Medications: Generic Name Dose Route Start Last Admin Trade Name Freq PRN Reason Stop Dose Admin Acetaminophen 650 mg 03/13/21 23:15 Acetaminophen 325 Mg Tab PO Q4H PRN Pain MILD(1-3)/Fever >100.5/LORENZANA Aspirin 81 mg 03/14/21 10:00 Aspirin 81 Mg Tab Chew PO DAILY [facility] Atorvastatin Calcium 40 mg 03/13/21 22:00 03/13/21 22:42 Atorvastatin 40 Mg Tab PO 40 mg QHS [facility] Administration Dexamethasone 8 mg 03/13/21 23:45 03/14/21 00:01 Dexamethasone 4 Mg/Ml Vial IV Not Given Q24HR [facility] Famotidine 20 mg 03/13/21 23:45 03/14/21 00:01 Famotidine 20 Mg/2 Ml Inj IV Not Given BID [facility] Heparin Sodium (Porcine) 2,700 unit 03/13/21 10:28 03/13/21 21:55 Heparin 10,000 Units/10 Ml Vial 40 unit/kg (2700 unit) 2,700 unit IV Administration Q6H PRN Anti-Xa Assay < 0.1 units/ml Hydromorphone HCl 0.5 mg 03/13/21 23:23 Hydromorphone 1 Mg/1 Ml Inj IV Q3H PRN Pain , Severe (7-10) Sodium Chloride 1,000 mls @ 75 mls/hr 03/13/21 23:15 Nacl 0.9% 1000 Ml IV 03/14/21 18:00 DIRECT [facility] Azithromycin 500 mg in 250 mls @ 250 mls/hr 03/14/21 10:00 Zithromax/Ns IV Q24HR [facility] Ceftriaxone Sodium 2 gm in 100 mls @ 200 mls/hr 03/13/21 23:55 03/13/21 23:58 Rocephin/Ns 2 Gm/100 Ml IV Not Given Q24HR [facility] Protocol Metoclopramide HCl 10 mg 03/13/21 23:23 Metoclopramide 10 Mg/2 Ml Inj IV Q6H PRN Nausea And Vomiting Metoprolol Tartrate 25 mg 03/13/21 22:00 03/13/21 22:17 Metoprolol Tartrate 25 Mg Tab PO 25 mg BID [facility] Administration Morphine Sulfate 2 mg 03/13/21 23:23 Morphine 2 Mg/1 Ml Inj IV Q4H PRN Pain, Moderate (4-6) Ondansetron HCl 4 mg 03/13/21 23:15 Ondansetron 4 Mg/2 Ml Inj IV Q3H PRN Nausea And Vomiting Oxycodone/Acetaminophen 1 tab 03/13/21 23:23 Oxycodone /Acetaminophen 5-325mg Tab PO Q6H PRN Pain, Moderate (4-6) Sodium Chloride 10 ml 03/14/21 10:00 Sodium Chloride 0.9% 10 Ml Flush Syringe IV BID [facility] Sodium Chloride 10 ml 03/13/21 23:15 Sodium Chloride 0.9% 10 Ml Flush Syringe IV PRN PRN LINE FLUSH
[2021-03-14] MEDS ORDERED: ASPIRIN 81 MG TAB CHEW PO SCH (10:00)
[2021-03-14] MEDS ORDERED: AZITHROMYCIN/NS 500 MG/250 ML 500 MG/250 ML BAG IV SCH (10:00)
[2021-03-14] MEDS ORDERED: HEPARIN 10,000 UNITS/10 ML VIAL ONE (10:58)
[2021-03-14] MEDS ORDERED: HEPARIN/NS 5000 UNIT/500ML 1,000 ML IR ONE (10:58)
[2021-03-14] MEDS ORDERED: VERAPAMIL 5 MG/2 ML INJ ONE (10:58)
[2021-03-14] MEDS ORDERED: LIDOCAINE (2%) 20 MG/1 ML VIAL 20 ML MDV INFILTRATI ONE (10:58)
[2021-03-14] MEDS ORDERED: SODIUM CHLORIDE 0.9% 500 ML 500 ML ONE ×2 (11:02→13:29)
[2021-03-14 11:16] LABS: C-Reactive Protein 0.7 mg/dL (0.00-1.30)
[2021-03-14] MEDS: fentaNYL 100 MCG/2 ML INJ ONE ×2 (11:26→11:32)
[2021-03-14] MEDS: MIDAZOLAM 2 MG/2 ML INJ ONE ×2 (11:26→11:32)
[2021-03-14] MEDS ORDERED: HEPARIN/ 0.45% NACL DRIP 25,000 UNIT/500 ML BAG ONE (11:39)
[2021-03-14] MEDS ORDERED: NITROGLYCERIN DRIP 50 MG/250 ML BOTTLE ONE (11:54)
--- NOTE | 2021-03-14 12:33 | Progress Note ---
Assessment and Plan Pt is a 60-year-old AA male with a hx of HTN, tobacco abuse (1 pack per week), and recently diagnosed COVID-19 infection (dx 02/28/2021), who presented with complaints of chest pain. Chest Pain NSTEMI H/o COVID-19 Infection (dx 02/28/2021) LLL PNA Tobacco Abuse (1 pack per week) HTN Varicose Veins/?Venous Insufficiency Plan: Continue heparin gtt. Continue ASA, statin, and beta tonya. 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 Patient accepted by Dr. Munguia at [facility] Pt seen in conjunction with Dr. Mark, who agrees with the assessment and plan of care. - Patient Problems (1) ACS (acute coronary syndrome) Current Visit: Yes Status: Acute (2) Chest pain Current Visit: Yes Status: Acute (3) Hypokalemia Current Visit: Yes Status: Acute (4) NSTEMI (non-ST elevated myocardial infarction) Current Visit: Yes Status: Acute (5) Person under investigation for COVID-19 Current Visit: Yes Status: Acute (6) Pneumonia Current Visit: Yes Status: Acute Qualifiers: Laterality: left Lung location: lower lobe of lung (7) SIRS (systemic inflammatory response syndrome) Current Visit: Yes Status: Acute (8) Hypertension Current Visit: Yes Status: Chronic Qualifiers: Hypertension type: primary hypertension Qualified Code(s): I10 - Essential (primary) hypertension Subjective Date of service: 03/14/21 Principal diagnosis: NSTEMI Interval history: Patient with cardiac cath this a.m. Objective Vital Signs Pulse Resp BP Pulse Ox 03/14/21 07:01 74 22 124/87 99 03/14/21 06:31 73 117/74 99 03/14/21 06:01 67 23 127/86 100 03/14/21 05:31 68 21 128/87 98 03/14/21 05:01 70 22 118/75 100 03/14/21 04:31 75 13 129/92 99 03/14/21 04:01 72 23 124/86 98 03/14/21 03:31 72 16 115/77 98 03/14/21 03:01 67 20 131/89 99 03/14/21 02:31 79 16 132/94 99 03/14/21 02:01 77 15 137/97 100 03/14/21 01:45 66 11 L 133/92 98 03/14/21 01:31 81 19 133/92 98 03/14/21 01:15 68 20 116/80 99 03/14/21 01:01 73 18 116/80 97 03/14/21 00:45 72 22 115/74 95 03/14/21 00:31 74 22 115/74 99 03/14/21 00:15 67 18 122/87 97 03/14/21 00:01 80 16 122/87 98 03/13/21 23:45 68 17 130/92 99 03/13/21 23:39 71 22 130/92 99 03/13/21 23:31 72 18 130/92 99 03/13/21 23:15 70 21 130/99 99 03/13/21 23:01 79 19 130/99 99 03/13/21 22:45 14 03/13/21 20:00 100 - Physical Examination General: No Apparent Distress HEENT: Positive: EOMI, Normocephaly, Mucus Membranes Moist Neck: Positive: neck supple, trachea midline. Negative: JVD/HJR Cardiac: Positive: Reg Rate and Rhythm Lungs: Positive: Normal Breath Sounds Neuro: Positive: Grossly Intact Abdomen: Positive: Soft. Negative: Tender Skin: Negative: Rash Musculoskeletal: No Fluid Collection, No Pain Extremities: Present: upper extr. pulses, lower extr. pulses. Absent: edema - Labs and Meds Cardiac Enzymes 03/14/21 Range/Units 09:38 Lactate Dehydrogenase 1376 H (91-180) units/L Coagulation 03/14/21 Range/Units 04:15 PT 13.1 (12.2-14.9) Sec. INR 0.89 (0.87-1.13) CBC 03/14/21 Range/Units 04:15 WBC 11.3 H (4.5-11.0) K/mm3 RBC 4.72 (3.65-5.03) M/mm3 Hgb 13.4 (11.8-15.2) gm/dl Hct 42.1 (35.5-45.6) % Plt Count 362 (140-440) K/mm3 Lymph # (Auto) 2.1 (1.2-5.4) K/mm3 [place] # (Auto) 1.4 H (0.0-0.8) K/mm3 Eos # (Auto) 0.0 (0.0-0.4) K/mm3 Baso # (Auto) 0.0 (0.0-0.1) K/mm3 Comprehensive Metabolic Panel 03/14/21 Range/Units 04:15 Sodium 139 (137-145) mmol/L Potassium 3.9 (3.6-5.0) mmol/L Chloride 103.7 (98-107) mmol/L Carbon Dioxide 23 (22-30) mmol/L BUN 10 (9-20) mg/dL Creatinine 0.8 (0.8-1.3) mg/dL Glucose 95 (75-100) mg/dL Calcium 8.9 (8.4-10.2) mg/dL - Imaging and Cardiology EKG: report reviewed (Sinus rhythm no acute ST-T wave changes) Echo: pending Cardiac cath: pending - Telemetry EKG Rhythm: Sinus Rhythm - EKG Sinus rhythms and dysrhythmias: sinus rhythm
[2021-03-14 13:28] VITALS: BP 132/69
--- NOTE | 2021-03-14 13:47 | Discharge Summary ---
Providers - Providers Date of Admission: 03/13/21 13:01 Date of discharge: 03/14/21 Attending physician: JLUIS MATA 03/13/21 11:44 Consult to Physician [CONS] Urgent Comment: Consulting Provider: DINORA MORRIS Physician Instructions: Reason For Exam: NSTEMI Primary care physician: [facility] Hospitalization Reason for admission: ACS, NSTEMI Hospital course: Pt is a 60-year-old AA male with a hx of HTN, tobacco abuse (1 pack per week), and recently diagnosed COVID-19 infection (dx 02/28/2021), who presented with complaints of chest pain. Pt reports generalized fatigue, chills, SOB, and a cough that started prior to his COVID diagnosis. He is unvaccinated. Pt developed worsening SOB and chest pain a few days ago. Pt describes pain as a burning sensation in the center of his chest. No diaphoresis or palpitations. Pt stated pain severity was 10/10 prior to arrival. Pain improved to 7/10 s/p NTG. Trop elevated - 0.056 -> 0.749. Initial 12-lead ECG revealed mild anterior ST depression without reciprocal changes. These ST segment changes resolved on repeat ECG, though anterior T wave inversions now present. Of note, chest CTA revealed no evidence of PE. Historically, pt is followed by the [facility] for varicose veins/?chronic venous insufficiency. Pt was admitted with dx of ACS, Covid PNA and NSTEMI. Patient was found to have significantly elevated troponin that has trended upward. Troponin0.056--->0.749--->14.26. I discussed the significantly elevated troponin with cardiology who took the patient to the [facility]. Patient treated with heparin and Aggrastat drips per cards recommendations. Also, Continued on aspirin, statin and beta-tonya. Echocardiogram pending. Await COVID PCR testing to confirm outpatient positive test. F/U inflammatory markers. Continue dexamethasone. Continue IV antibiotics until procalcitonin resulted. Consider ID consultation based on COVID PCR test. After Cath pt initiated on Nitro drip as well. Patient found to have triple- vessel disease during [facility] and is to be transferred to [place] for further intervention. Patient accepted by Dr. Munguia at [place] Dedicated d/c time 32 min Disposition: HOME / SELF CARE / HOMELESS Final Discharge Diagnosis (Prints w/discharge instructions): ACS, NSTEMI, CAD--triple vessel disease Core Measure Documentation - Palliative Care Palliative Care/ Comfort Measures: Not Applicable - Core Measures Any of the following diagnoses?: none Exam - Constitutional Vitals: Temp Pulse Resp BP Pulse Ox 98.8 F 65 18 132/69 93 03/14/21 12:25 03/14/21 13:15 03/14/21 13:15 03/14/21 13:15 03/14/21 13:15 General appearance: Present: no acute distress, well-nourished - EENT Eyes: Present: PERRL ENT: hearing intact, clear oral mucosa - Neck Neck: Present: supple, normal ROM - Respiratory Respiratory effort: normal Respiratory: bilateral: CTA - Cardiovascular Heart Sounds: Present: S1 & S2. Absent: rub, click - Extremities Extremities: pulses symmetrical, No edema Peripheral Pulses: within normal limits - Abdominal General gastrointestinal: Present: soft, non-tender, non-distended, normal bowel sounds Male genitourinary: Present: normal - Integumentary Integumentary: Present: clear, warm, dry - Musculoskeletal Musculoskeletal: gait normal, strength equal bilaterally - Psychiatric Psychiatric: appropriate mood/affect, intact judgment & insight - Neurologic Neurologic: CNII-XII intact, moves all extremities Plan Activity: advance as tolerated Weight Bearing Status: Non-Weight Bearing Diet: low fat, low cholesterol, low salt Follow up with: [facility] [Primary Care Provider] - 3-5 Days
--- NOTE | 2021-03-14 19:17 | Cardiac Catherization Report ---
DATE OF SERVICE: 03/14/2021 INDICATIONS: The patient is a 60-year-old gentleman with history of hypertension and history of right inguinal hernia repair many years ago, was having indigestion symptoms like first 2 weeks, presented to the Emergency Room and was noted to have elevated troponin consistent with non-STEMI and scheduled for cardiac catheterization for definitive diagnosis and treatment. The patient is aware of the procedure, potential complications and alternatives of therapy available.Patient was positive for COVID 2 weeks ago. DESCRIPTION OF PROCEDURE: The patient was brought to the catheterization laboratory in a fasting condition, prepared in standard fashion. Evaluated for moderate sedation and was felt to be appropriate candidate for moderate sedation and received IV Versed and fentanyl. Subsequently, the patient was prepared in standard fashion. Right radial artery access was obtained after giving local anesthesia using 21-gauge arterial puncture needle. A 5-Mauritian slender sheath was introduced. A 6-Mauritian multipurpose catheter was used to obtain the angiograms of the left ventricle done in PLASENC[place] and [place] projection followed by angiograms of the left coronary artery in the RCA in multiple views. At the end of the procedure, catheter and sheath were removed. Good hemostasis was achieved with radial band; however, it was felt the patient needs urgent intervention or revascularization. Hence, discussed with Dr. keller at [facility], who accepted the patient. The patient presently is without any chest pain, hemodynamically stable, rhythm being sinus and started on IV heparin and IV nitroglycerin. It is to be noted the patient received Aggrastat for 12 hours yesterday. Following findings were noted. HEMODYNAMICS: 1. Opening aortic pressure 133/81. Left ventricular pressure 132/29. No gradient across the aortic valve. Estimated ejection fraction 35-40%. 2. Left ventriculogram done in [place]ASENCIA and [place] projection showed akinesis of the entire lateral wall. Septum and anterior wall are moving well. Ejection fraction was felt to be around 35-40%. Mitral regurgitation could not be evaluated. 3. Right coronary artery dominant vessel shows moderate diffuse disease, 50-60% in the mid part and 60% focal lesion of the PDA in addition to diffuse distal disease of the PDA. 4. Left coronary artery shows left main to be without significant disease. LAD shows diffuse calcification. There is a very tight, probably thrombotic lesion in the very high mid LAD. Also some haziness in the proximal LAD, but this proximal lesion does not appear to be significant. Mid and distal LAD distal to abovementioned lesion without significant disease. The circumflex artery shows focal thrombotic mid lesion, very tight 90%. Distal to this, 2 large marginal branches without significant disease noted. FINAL IMPRESSION: 1. Akinetic lateral wall with ejection fraction of 35-40%. 2. Severe stenosis in the mid circumflex artery with large distal branches and akinetic lateral wall. Also severe lesion of the high mid LAD to proximal LAD lesion. Considering the akinetic lateral wall, intervention of the LAD was felt to be high risk intervention. Considering distal vessels are very large caliber with his ongoing symptoms and presentation with non-STEMI, would recommend revascularization. May benefit from high-risk angioplasty of the circumflex artery and LAD versus bypass surgery. Discussed with Dr. Keller who is planning to make arrangements for the transfer. At the end of the procedure, he is hemodynamically stable, no complaints. The patient tolerated the IV Versed as well. The patient will be continued on IV heparin and IV nitroglycerin and medical therapy. The patient's sedation started at 11:26 a.m. and ended at 11:39 a.m. At the end of the procedure, the patient is communicating normally, breathing normally with no focal deficits. Findings were explained to the patient and he is agreeable with the plan. TID: [id number] RECEIPT: [id number] GIOVANNA/NICKI/TALIA CRUZ
[2021-03-14] MEDS ORDERED: cefTRIAXone/NS 2 GM/100 ML 2 GM/100 ML BAG IV SCH (23:00)
[2021-03-15] MEDS ORDERED: AZITHROMYCIN 250 MG TAB PO SCH (10:00)
--- NOTE | 2021-03-16 08:45 | Electrocardiograph Report ---
[facility] Test Date: 2021-03-13 Test Time: 09:26:54 Pat Name: ARMANDO LYLE Department: Room: [facility] Gender: M Television Service Engineer: HALIMA : 1960 Requested By: ED DOC Order Number: [id number] Reading MD: Mere Mcfarlane Measurements Intervals [place] Rate: 79 P: 58 DE: 155 QRS: 50 QRSD: 94 T: 65 QT: 384 QTc: 440 Interpretive Statements Sinus rhythm ST depression, consistent with anterior ischemia No previous ECG available for comparison Electronically Signed On 03-16-2021 8:44:50 EST by Mere Mcfarlane
--- NOTE | 2021-03-16 08:47 | Electrocardiograph Report ---
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
--- NOTE | 2021-03-16 08:54 | Electrocardiograph Report ---
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
== END 2021-03-14 13:40 | disposition short-term general hospital (02) | DRG 280 ==
LOC: ED 09:16 → 3A 13:01
PROVIDERS: ADMIT Internal Medicine; ATTEND Hospitalist
PROC: 4A023N7 Measurement of Cardiac Sampling and Pressure, Left Heart, Percutaneous Approach (ICD-10-PCS; principal; 2021-03-14)
PROC: B2111ZZ Fluoroscopy of Multiple Coronary Arteries using Low Osmolar Contrast (ICD-10-PCS; 2021-03-14)
PROC: B2151ZZ Fluoroscopy of Left Heart using Low Osmolar Contrast (ICD-10-PCS; 2021-03-14)
DX: I21.4 Non-ST elevation (NSTEMI) myocardial infarction (principal); U07.1 COVID-19; J12.82 Pneumonia due to coronavirus disease 2019; I50.21 Acute systolic (congestive) heart failure; R65.10 Systemic inflammatory response syndrome (SIRS) of non-infectious origin without acute organ dysfunction; I11.0 Hypertensive heart disease with heart failure; F17.200 Nicotine dependence, unspecified, uncomplicated; E87.6 Hypokalemia; I83.90 Asymptomatic varicose veins of unspecified lower extremity; Z82.49 Family history of ischemic heart disease and other diseases of the circulatory system
CPT/HCPCS: 36415; 71046; 71275; 80048; 80061; 80076; 82728; 83615; 83880; 84145; 84484; 85014; 85018; 85025; 85379; 85520; 85610; 85730; 86140; 87040; 93005; 93458; G0378; J3490; J9280; C1894; J0456; J1644; J2250; J2405; J3010; J3246; J7040; Q9967; U0003